=== PATIENT | female | born 1955 | race Caucasian/White ===

== ENCOUNTER 2016-06-25 10:48 | Emergency (ER) | payer BC ==
[~2016-06-25] VITALS: Ht 162.6 cm; Wt 62.0 kg
[2016-06-25] MEDS ORDERED: PRAVASTATIN SOD40 MG PO (11:45)
[2016-06-25] MEDS ORDERED: XIFAXAN550 MG PO (11:46)
[2016-06-25] MEDS ORDERED: ESTRADIOL1 EA12 TD (11:46)
[2016-06-25] MEDS ORDERED: CELECOXIB200 MG PO (11:48)
[2016-06-25 11:52] LABS: HEMATOCRIT 43.1 % (36.0-46.0); MCH 29.1 PG (29.0-34.0); MCHC 32.9 G/DL (30.0-36.0); MCV 88.3 FL (83-99); MEAN PLAT.VOLUME 9.7 uM^3 (9.5-12.4); PLATELET COUNT 331 K/uL (156-360); RBC DIS.WIDTH-CV 13.1 % (11.8-14.6); RBC DIS.WIDTH-SD 42.5 % (39-53); RED BLOOD COUNT 4.88 M/uL (3.80-5.20); WHITE BLOOD COUNT 8.8 K/uL (4.1-10.2)
[2016-06-25 12:16] LABS: TROP-I INTERPRETATION NEGATIVE; TROPONIN-I < 0.01 ng/mL (0.0-0.30)
[2016-06-25 12:30] LABS: D-DIMER ELISA 0.88 mg/L FEU (< 0.57)
[2016-06-25 12:40] LABS: CHLORIDE 109 mEq/L (99-109); POTASSIUM 4.7 mEq/L (3.7-5.4); SODIUM 141 mEq/L (136-147)
[2016-06-25 12:41] LABS: GLUCOSE 89 mg/dL (70-99)
[2016-06-25 12:43] LABS: ANION GAP 8 MEQ/L (2-14)
[2016-06-25 12:45] LABS: GFR ESTIMATE (CALCULATED) > 59 mL/min/
[2016-06-25 12:46] LABS: UREA NITROGEN (BUN) 16 mg/dL (9-23)
[2016-06-25] MEDS ORDERED: TYLENOL WITH C1 EACH PO (14:31)
[2016-06-25 14:36] LABS: TROP-I INTERPRETATION NEGATIVE; TROPONIN-I < 0.01 ng/mL (0.0-0.30)
[2016-06-25 14:43] VITALS: BP 119/77
== END 2016-06-25 14:49 | disposition home or self-care (01) ==
LOC: EME 10:48
PROVIDERS: Emergency Medicine
DX: R07.89 Other chest pain (principal); E78.5 Hyperlipidemia, unspecified
CPT/HCPCS: 71020; 71275; 80048; 84484; 85027; 85379; 93005; 99281; 99284